=== PATIENT | female | born 1990 | race Caucasian/White ===

== ENCOUNTER 2017-04-04 10:04 | Emergency (ER) | payer OTHER ==
[~2017-04-04] VITALS: Ht 157.5 cm; Wt 137.3 kg
[2017-04-04 10:09] VITALS: BP 137/90
[2017-04-04 11:47] LABS: HEMATOCRIT 39.7 % (36.0-46.0); MCH 28.3 PG (29.0-34.0); MCHC 32.7 G/DL (30.0-36.0); MCV 86.3 FL (83-99); MEAN PLAT.VOLUME 10.9 uM^3 (9.5-12.4); PLATELET COUNT 235 K/uL (156-360); RBC DIS.WIDTH-CV 12.3 % (11.8-14.6); WHITE BLOOD COUNT 7.7 K/uL (4.1-10.2)
[2017-04-04 11:57] LABS: CHLORIDE 106 mEq/L (99-109); POTASSIUM 4.2 mEq/L (3.7-5.4); SODIUM 139 mEq/L (136-147)
[2017-04-04 11:58] LABS: GLUCOSE 88 mg/dL (70-99)
[2017-04-04 12:00] LABS: ANION GAP 8 MEQ/L (2-14)
[2017-04-04 12:02] LABS: GFR ESTIMATE (CALCULATED) > 59 mL/min/
[2017-04-04 12:03] LABS: UREA NITROGEN (BUN) 8 mg/dL (9-23)
[2017-04-04 12:10] LABS: QUANTITATIVE HCG < 4.0 MIU/ML
[2017-04-04 12:12] LABS: ADD MIUA? YES; BILIRUBIN NEGATIVE; BLOOD MODERATE; COLOR YELLOW ((YELLOW)); GLUCOSE (STRIP) NEGATIVE; KETONES NEGATIVE; LEUKOCYTES NEGATIVE; NITRITE NEGATIVE; PROTEIN (STRIP) 30; SPECIFIC GRAVITY 1.024 (1.000-1.030); UROBILINOGEN 0.2 MG/DL (0.2-1.0)
[2017-04-04 12:18] LABS: BACTERIA RARE /HPF; CALCIUM OXALATE CRYSTALS 2+ /HPF; EPITHELIAL CELLS RARE /HPF; HYALINE CASTS 0-5 /LPF; MUCUS 2+ /LPF; WHITE BLOOD CELLS 0-5 /HPF (0-5)
[2017-04-04] MEDS ORDERED: ZOFRAN4 MG PO (12:41)
== END 2017-04-04 12:48 | disposition home or self-care (01) ==
LOC: EME 10:04
PROVIDERS: Physician Assistant
DX: N93.9 Abnormal uterine and vaginal bleeding, unspecified (principal); L74.0 Miliaria rubra
CPT/HCPCS: 80048; 81003; 84702; 85027; 99281; 99284

== ENCOUNTER 2017-04-30 10:12 | Emergency (ER) | payer OTHER ==
[~2017-04-30] VITALS: Ht 157.5 cm; Wt 138.2 kg
[~2017-04-30 10:12] MED LIST: ZOFRAN4 MG PO
[2017-04-30 10:15] VITALS: BP 143/93
[2017-04-30 10:42] LABS: ADD MIUA? YES; BILIRUBIN NEGATIVE; BLOOD NEGATIVE; COLOR YELLOW ((YELLOW)); GLUCOSE (STRIP) NEGATIVE; KETONES NEGATIVE; LEUKOCYTES LARGE; NITRITE NEGATIVE; PROTEIN (STRIP) 30; SPECIFIC GRAVITY 1.027 (1.000-1.030); UROBILINOGEN 0.2 MG/DL (0.2-1.0)
[2017-04-30 10:50] LABS: BACTERIA RARE /HPF; EPITHELIAL CELLS 2+ /HPF; MUCUS TRACE /LPF; RED BLOOD CELLS 0-5 /HPF (0-5); UCUL ADDED? NO; WHITE BLOOD CELLS 0-5 /HPF (0-5)
[2017-04-30 11:35] LABS: EOSINOPHIL (%) 0.6 % (0-5); HEMATOCRIT 38.5 % (36.0-46.0); IMMATURE GRANULOCYTE (%) 0.1 % (0.0-0.7); INSTRUMENT ABS NEUTROPHIL CT 4.1 K/uL; LYMPHOCYTE COUNT 2.5 K/uL (1.0-2.8); MCH 28.2 PG (29.0-34.0); MCV 85.4 FL (83-99); MEAN PLAT.VOLUME 10.5 uM^3 (9.5-12.4); MONOCYTE (%) 5.8 % (3-12); MONOCYTE COUNT 0.4 K/uL (0-0.8); NEUTROPHIL (%) 58.2 % (45-76); NEUTROPHIL COUNT 4.1 K/uL (1.8-6.4); PLATELET COUNT 228 K/uL (156-360); RBC DIS.WIDTH-CV 12.2 % (11.8-14.6); RED BLOOD COUNT 4.51 M/uL (3.80-5.20); WHITE BLOOD COUNT 7.1 K/uL (4.1-10.2)
[2017-04-30 11:44] LABS: CHLORIDE 106 mEq/L (99-109); POTASSIUM 3.7 mEq/L (3.7-5.4); SODIUM 139 mEq/L (136-147)
[2017-04-30 11:46] LABS: GLUCOSE 88 mg/dL (70-99)
[2017-04-30 11:47] LABS: ANION GAP 8 MEQ/L (2-14)
[2017-04-30 11:49] LABS: GFR ESTIMATE (CALCULATED) > 59 mL/min/
[2017-04-30 11:50] LABS: UREA NITROGEN (BUN) 10 mg/dL (9-23)
[2017-04-30 11:59] LABS: QUANTITATIVE HCG < 4.0 MIU/ML
[2017-04-30] MEDS ORDERED: METROGEL-VAGINA70 GM VG (12:08)
== END 2017-04-30 12:27 | disposition home or self-care (01) ==
LOC: EME 10:12
PROVIDERS: Personal Emergency Response Attendant
DX: R42 Dizziness and giddiness (principal); Z11.3 Encounter for screening for infections with a predominantly sexual mode of transmission; F17.200 Nicotine dependence, unspecified, uncomplicated; Z87.440 Personal history of urinary (tract) infections
CPT/HCPCS: 80048; 81003; 84702; 85025; 93005; 99281; 99285; J0696

== ENCOUNTER 2017-05-31 14:51 | Emergency (ER) | payer OTHER ==
[~2017-05-31] VITALS: Ht 157.5 cm; Wt 136.9 kg
[~2017-05-31 14:51] MED LIST changes: +METROGEL-VAGINA70 GM VG
[2017-05-31 16:40] LABS: INTERNAL CONTROL VALID? YES
[2017-05-31] MEDS ORDERED: BACTROBAN OINTM22 GM TP (16:48)
[2017-05-31 16:53] LABS: ADD MIUA? YES; BILIRUBIN NEGATIVE; BLOOD NEGATIVE; GLUCOSE (STRIP) NEGATIVE; KETONES NEGATIVE; LEUKOCYTES MODERATE; NITRITE NEGATIVE; PROTEIN (STRIP) 100; SPECIFIC GRAVITY 1.021 (1.000-1.030)
[2017-05-31 16:57] LABS: COLOR DK YELLOW ((YELLOW))
[2017-05-31 17:11] LABS: AMORPHOUS PHOSPHATE CRYSTALS 4+; BACTERIA 1+ /HPF; CASTS NONE SEEN /LPF; CRYSTALS PRESENT; EPITHELIAL CELLS 2+ /HPF; MUCUS NONE SEEN /LPF; RED BLOOD CELLS 0-5 /HPF (0-5)
[2017-05-31] MEDS ORDERED: VALTREX1000 MG PO (17:30)
[2017-05-31] MEDS ORDERED: KEFLEX500 MG PO (17:30)
[2017-05-31 17:58] VITALS: BP 149/90
== END 2017-05-31 17:59 | disposition home or self-care (01) ==
LOC: EME 14:51
PROVIDERS: Nurse Practitioner Family
DX: S09.93XA Unspecified injury of face, initial encounter (principal); A60.04 Herpesviral vulvovaginitis; Z20.2 Contact with and (suspected) exposure to infections with a predominantly sexual mode of transmission; N39.0 Urinary tract infection, site not specified; W23.0XXA Caught, crushed, jammed, or pinched between moving objects, initial encounter; R21 Rash and other nonspecific skin eruption; Z87.440 Personal history of urinary (tract) infections; F17.200 Nicotine dependence, unspecified, uncomplicated; Z88.2 Allergy status to sulfonamides
CPT/HCPCS: 81003; 84703; 87651 90; 99281; 99284; J0696

== ENCOUNTER 2017-07-01 16:17 | Emergency (ER) | payer OTHER ==
[~2017-07-01] VITALS: Ht 157.5 cm; Wt 97.7 kg
[~2017-07-01 16:17] MED LIST changes: +BACTROBAN OINTM22 GM TP; +KEFLEX500 MG PO; +VALTREX1000 MG PO
[2017-07-01 16:50] LABS: HEMATOCRIT 41.1 % (36.0-46.0); HEMOGLOBIN 13.8 G/DL (11.9-15.5); MCH 28.6 PG (29.0-34.0); MCHC 33.6 G/DL (30.0-36.0); MCV 85.1 FL (83-99); PLATELET COUNT 230 K/uL (156-360); RBC DIS.WIDTH-CV 12.6 % (11.8-14.6); RBC DIS.WIDTH-SD 38.8 % (39-53); RED BLOOD COUNT 4.83 M/uL (3.80-5.20); WHITE BLOOD COUNT 8.5 K/uL (4.1-10.2)
[2017-07-01 17:03] LABS: CHLORIDE 104 mEq/L (99-109); POTASSIUM 3.8 mEq/L (3.7-5.4); SODIUM 139 mEq/L (136-147)
[2017-07-01 17:06] LABS: GLUCOSE 85 mg/dL (70-99); TOTAL PROTEIN 7.2 g/dL (6.4-8.3)
[2017-07-01 17:08] LABS: TOTAL BILIRUBIN 0.6 mg/dL (0.0-1.0)
[2017-07-01 17:09] LABS: ALKALINE PHOSPHATASE 58 IU/L (3-129); CREATININE 0.7 mg/dL (0.6-1.3); GFR ESTIMATE (CALCULATED) > 59 mL/min/
[2017-07-01 17:10] LABS: UREA NITROGEN (BUN) 11 mg/dL (9-23)
[2017-07-01 17:11] LABS: AST (GOT) 13 IU/L (2-34)
[2017-07-01 17:12] LABS: ALT (GPT) 22 IU/L (3-49)
[2017-07-01 17:18] LABS: QUANTITATIVE HCG < 4.0 MIU/ML
[2017-07-01 19:26] LABS: APPEARANCE CLOUDY ((CLEAR)); BILIRUBIN NEGATIVE; BLOOD NEGATIVE; COLOR YELLOW ((YELLOW)); GLUCOSE (STRIP) NEGATIVE; KETONES NEGATIVE; LEUKOCYTES LARGE; NITRITE NEGATIVE; PROTEIN (STRIP) 30; SPECIFIC GRAVITY 1.025 (1.000-1.030); UROBILINOGEN 0.2 MG/DL (0.2-1.0)
[2017-07-01 19:29] LABS: SOURCE SWAB
[2017-07-01 19:41] LABS: RED BLOOD CELLS 0-5 /HPF (0-5); WHITE BLOOD CELLS 30-40 /HPF (0-5)
[2017-07-01 19:42] LABS: BACTERIA 2+ /HPF; EPITHELIAL CELLS 2+ /HPF; MUCUS 1+ /LPF; UCUL ADDED? YES
[2017-07-01] MEDS ORDERED: KEFLEX500 MG PO (19:50)
[2017-07-01] MEDS ORDERED: VALACYCLOVIR500 MG PO (20:04)
[2017-07-01 20:10] VITALS: BP 134/78
== END 2017-07-01 20:11 | disposition home or self-care (01) ==
LOC: EME 16:17
PROVIDERS: Physician Assistant
DX: N39.0 Urinary tract infection, site not specified (principal); Z87.440 Personal history of urinary (tract) infections; F17.200 Nicotine dependence, unspecified, uncomplicated; Z88.2 Allergy status to sulfonamides
CPT/HCPCS: 80053; 81003; 84702; 85027; 87086; 87210; 87491; 87591; 99281; 99284

== ENCOUNTER 2017-07-28 18:26 | Emergency (ER) | payer OTHER ==
[~2017-07-28] VITALS: Ht 157.5 cm; Wt 132.5 kg
[~2017-07-28 18:26] MED LIST changes: +VALACYCLOVIR500 MG PO
[2017-07-28 19:42] LABS: APPEARANCE SL.HAZY ((CLEAR)); BILIRUBIN NEGATIVE; BLOOD MODERATE; COLOR YELLOW ((YELLOW)); GLUCOSE (STRIP) NEGATIVE; KETONES NEGATIVE; LEUKOCYTES SMALL; NITRITE NEGATIVE; PROTEIN (STRIP) NEGATIVE; SPECIFIC GRAVITY 1.029 (1.000-1.030); UROBILINOGEN 0.2 MG/DL (0.2-1.0)
[2017-07-28 19:50] LABS: BACTERIA RARE /HPF; CALCIUM OXALATE CRYSTALS 4+ /HPF; EPITHELIAL CELLS 1+ /HPF; HYALINE CASTS 0-5 /LPF; MUCUS TRACE /LPF; UCUL ADDED? NO; WHITE BLOOD CELLS 0-5 /HPF (0-5)
[2017-07-28 19:58] LABS: HEMATOCRIT 41.1 % (36.0-46.0); HEMOGLOBIN 13.8 G/DL (11.9-15.5); MCH 28.7 PG (29.0-34.0); MCHC 33.6 G/DL (30.0-36.0); MCV 85.4 FL (83-99); PLATELET COUNT 234 K/uL (156-360); RBC DIS.WIDTH-CV 12.5 % (11.8-14.6); RBC DIS.WIDTH-SD 38.5 % (39-53); RED BLOOD COUNT 4.81 M/uL (3.80-5.20); WHITE BLOOD COUNT 9.3 K/uL (4.1-10.2)
[2017-07-28 20:07] LABS: ALBUMIN 4.3 g/dL (3.2-4.8); CHLORIDE 108 mEq/L (99-109); POTASSIUM 3.4 mEq/L (3.7-5.4); SODIUM 142 mEq/L (136-147)
[2017-07-28 20:09] LABS: GLUCOSE 88 mg/dL (70-99)
[2017-07-28 20:10] LABS: TOTAL PROTEIN 7.2 g/dL (6.4-8.3)
[2017-07-28 20:11] LABS: TOTAL BILIRUBIN 0.4 mg/dL (0.0-1.0)
[2017-07-28 20:13] LABS: ALKALINE PHOSPHATASE 63 IU/L (3-129); CREATININE 0.7 mg/dL (0.6-1.3); GFR ESTIMATE (CALCULATED) > 59 mL/min/
[2017-07-28 20:14] LABS: UREA NITROGEN (BUN) 11 mg/dL (9-23)
[2017-07-28 20:15] LABS: AST (GOT) 14 IU/L (2-34); DIRECT BILIRUBIN 0.1 mg/dL (0.0-0.3)
[2017-07-28 20:16] LABS: ALT (GPT) 21 IU/L (3-49); LIPASE 8 U/L (1.0-51.0)
[2017-07-28 20:22] LABS: QUANTITATIVE HCG < 4.0 MIU/ML
[2017-07-28] MEDS ORDERED: KEFLEX500 MG PO (21:11)
[2017-07-28] MEDS ORDERED: ZOFRAN4 MG PO (21:11)
[2017-07-28] MEDS ORDERED: NAPROSYN500 MG PO (21:11)
[2017-07-28 21:38] VITALS: BP 135/86
== END 2017-07-28 21:39 | disposition home or self-care (01) ==
LOC: EME 18:26
PROVIDERS: Emergency Medicine
DX: N39.0 Urinary tract infection, site not specified (principal); R10.11 Right upper quadrant pain; Z20.2 Contact with and (suspected) exposure to infections with a predominantly sexual mode of transmission; M54.5 Low back pain; Z87.440 Personal history of urinary (tract) infections; F17.200 Nicotine dependence, unspecified, uncomplicated; Z88.2 Allergy status to sulfonamides
CPT/HCPCS: 72131; 74176; 80048; 80076; 81003; 83690; 84702; 85027; 87086; 99281; 99284; J0696

== ENCOUNTER 2017-08-15 13:02 | Emergency (ER) | payer OTHER ==
[~2017-08-15] VITALS: Ht 157.5 cm; Wt 133.0 kg
[~2017-08-15 13:02] MED LIST changes: +NAPROSYN500 MG PO
[2017-08-15 13:35] LABS: HEMATOCRIT 40.2 % (36.0-46.0); HEMOGLOBIN 13.6 G/DL (11.9-15.5); MCH 29.1 PG (29.0-34.0); MCHC 33.8 G/DL (30.0-36.0); MCV 85.9 FL (83-99); PLATELET COUNT 213 K/uL (156-360); RBC DIS.WIDTH-CV 12.8 % (11.8-14.6); RBC DIS.WIDTH-SD 39.8 % (39-53); RED BLOOD COUNT 4.68 M/uL (3.80-5.20); WHITE BLOOD COUNT 7.3 K/uL (4.1-10.2)
[2017-08-15 13:36] LABS: APPEARANCE SL.HAZY ((CLEAR)); BILIRUBIN NEGATIVE; BLOOD NEGATIVE; COLOR YELLOW ((YELLOW)); GLUCOSE (STRIP) NEGATIVE; KETONES NEGATIVE; LEUKOCYTES NEGATIVE; NITRITE NEGATIVE; PROTEIN (STRIP) NEGATIVE; SPECIFIC GRAVITY 1.026 (1.000-1.030)
[2017-08-15 13:44] LABS: CHLORIDE 103 mEq/L (99-109); POTASSIUM 3.4 mEq/L (3.7-5.4); SODIUM 137 mEq/L (136-147)
[2017-08-15 13:45] LABS: BACTERIA NONE SEEN /HPF; EPITHELIAL CELLS 2+ /HPF; MUCUS 1+ /LPF; RED BLOOD CELLS 0-5 /HPF (0-5); UCUL ADDED? NO; WHITE BLOOD CELLS 0-5 /HPF (0-5)
[2017-08-15 13:45] LABS: GLUCOSE 81 mg/dL (70-99)
[2017-08-15 13:49] LABS: CREATININE 0.7 mg/dL (0.6-1.3); GFR ESTIMATE (CALCULATED) > 59 mL/min/
[2017-08-15 13:50] LABS: UREA NITROGEN (BUN) 7 mg/dL (9-23)
[2017-08-15 14:00] LABS: QUANTITATIVE HCG < 4.0 MIU/ML
[2017-08-15] MEDS ORDERED: BENTYL20 MG PO (15:23)
[2017-08-15] MEDS ORDERED: ZOFRAN ODT4 MG PO (15:23)
[2017-08-15 15:38] VITALS: BP 166/102
== END 2017-08-15 15:40 | disposition home or self-care (01) ==
LOC: EME 13:02
PROVIDERS: Nurse Practitioner Family
DX: R10.84 Generalized abdominal pain (principal); R11.2 Nausea with vomiting, unspecified; R19.7 Diarrhea, unspecified; E87.6 Hypokalemia; F17.200 Nicotine dependence, unspecified, uncomplicated; Z88.2 Allergy status to sulfonamides
CPT/HCPCS: 74176; 80048; 81003; 84702; 85027; 99281; 99285

== ENCOUNTER 2017-12-13 02:31 | Emergency (ER) | payer OTHER ==
[~2017-12-13] VITALS: Ht 157.5 cm; Wt 145.4 kg
[~2017-12-13 02:31] MED LIST changes: +BENTYL20 MG PO; +ZOFRAN ODT4 MG PO
[2017-12-13 02:50] LABS: HEMATOCRIT 38.5 % (36.0-46.0); HEMOGLOBIN 13.1 G/DL (11.9-15.5); MCH 29.1 PG (29.0-34.0); MCV 85.6 FL (83-99); PLATELET COUNT 242 K/uL (156-360); RBC DIS.WIDTH-CV 12.2 % (11.8-14.6); RBC DIS.WIDTH-SD 37.2 % (39-53); WHITE BLOOD COUNT 9.4 K/uL (4.1-10.2)
[2017-12-13 03:00] LABS: APPEARANCE SL.HAZY ((CLEAR)); BILIRUBIN NEGATIVE; BLOOD NEGATIVE; COLOR YELLOW ((YELLOW)); GLUCOSE (STRIP) NEGATIVE; KETONES NEGATIVE; LEUKOCYTES TRACE; NITRITE NEGATIVE; PROTEIN (STRIP) 30; SPECIFIC GRAVITY 1.034 (1.000-1.030)
[2017-12-13 03:06] LABS: BACTERIA NONE SEEN /HPF; EPITHELIAL CELLS 1+ /HPF; MUCUS 1+ /LPF; RED BLOOD CELLS 0-5 /HPF (0-5); UCUL ADDED? NO; WHITE BLOOD CELLS 0-5 /HPF (0-5)
[2017-12-13 06:14] VITALS: BP 148/92
== END 2017-12-13 06:15 | disposition home or self-care (01) ==
LOC: EME 02:31
DX: O20.9 Hemorrhage in early pregnancy, unspecified (principal); O99.330 Smoking (tobacco) complicating pregnancy, unspecified trimester; F17.210 Nicotine dependence, cigarettes, uncomplicated; Z88.2 Allergy status to sulfonamides; Z3A.00 Weeks of gestation of pregnancy not specified
CPT/HCPCS: 76801; 81003; 84702; 85027; 86900; 86901; 99281; 99283

== ENCOUNTER 2018-01-02 00:31 | Emergency (ER) | payer OTHER ==
[~2018-01-02] VITALS: Ht 157.5 cm; Wt 149.0 kg
[2018-01-02 01:39] LABS: HEMOGLOBIN 12.8 G/DL (11.9-15.5); MCH 29.2 PG (29.0-34.0); MCHC 34.6 G/DL (30.0-36.0); MCV 84.3 FL (83-99); PLATELET COUNT 241 K/uL (156-360); RBC DIS.WIDTH-CV 12.1 % (11.8-14.6); RBC DIS.WIDTH-SD 36.7 % (39-53); RED BLOOD COUNT 4.39 M/uL (3.80-5.20)
[2018-01-02 01:50] LABS: ALBUMIN 4.1 g/dL (3.2-4.8)
[2018-01-02 01:51] LABS: CHLORIDE 105 mEq/L (99-109); POTASSIUM 3.8 mEq/L (3.7-5.4); SODIUM 139 mEq/L (136-147)
[2018-01-02 01:53] LABS: GLUCOSE 106 mg/dL (70-99); TOTAL PROTEIN 6.5 g/dL (6.4-8.3)
[2018-01-02 01:55] LABS: TOTAL BILIRUBIN 0.3 mg/dL (0.0-1.0)
[2018-01-02 01:56] LABS: ALKALINE PHOSPHATASE 59 IU/L (3-129)
[2018-01-02 01:57] LABS: CREATININE 0.7 mg/dL (0.6-1.3); GFR ESTIMATE (CALCULATED) > 59 mL/min/
[2018-01-02 01:58] LABS: AST (GOT) 13 IU/L (2-34); UREA NITROGEN (BUN) 7 mg/dL (9-23)
[2018-01-02 02:00] LABS: ALT (GPT) 15 IU/L (3-49)
[2018-01-02 02:05] LABS: QUANTITATIVE HCG 270.5 MIU/ML
[2018-01-02 02:51] LABS: APPEARANCE CLOUDY ((CLEAR)); BILIRUBIN NEGATIVE; BLOOD NEGATIVE; COLOR YELLOW ((YELLOW)); GLUCOSE (STRIP) NEGATIVE; KETONES NEGATIVE; LEUKOCYTES SMALL; NITRITE NEGATIVE; PROTEIN (STRIP) 100; SPECIFIC GRAVITY 1.032 (1.000-1.030)
[2018-01-02 02:57] LABS: BACTERIA RARE /HPF; EPITHELIAL CELLS 2+ /HPF; MUCUS 4+ /LPF; UCUL ADDED? YES
[2018-01-02] MEDS ORDERED: MACROBID100 MG PO (04:33)
[2018-01-02 04:58] VITALS: BP 144/96
== END 2018-01-02 04:59 | disposition home or self-care (01) ==
LOC: EME 00:31
DX: O23.41 Unspecified infection of urinary tract in pregnancy, first trimester (principal); O34.81 Maternal care for other abnormalities of pelvic organs, first trimester; N83.201 Unspecified ovarian cyst, right side; N83.202 Unspecified ovarian cyst, left side; O26.891 Other specified pregnancy related conditions, first trimester; R10.11 Right upper quadrant pain; O99.331 Smoking (tobacco) complicating pregnancy, first trimester; F17.200 Nicotine dependence, unspecified, uncomplicated; Z88.2 Allergy status to sulfonamides; Z3A.01 Less than 8 weeks gestation of pregnancy
CPT/HCPCS: 76705; 76801; 80053; 81003; 84702; 85027; 87086; 99281; 99284

== ENCOUNTER 2018-01-07 12:52 | Emergency (ER) | payer OTHER ==
[~2018-01-07] VITALS: Ht 157.5 cm; Wt 148.6 kg
[~2018-01-07 12:52] MED LIST changes: +MACROBID100 MG PO
[2018-01-07 13:30] LABS: HEMATOCRIT 37.8 % (36.0-46.0); HEMOGLOBIN 12.9 G/DL (11.9-15.5); MCH 29.1 PG (29.0-34.0); MCHC 34.1 G/DL (30.0-36.0); MCV 85.3 FL (83-99); PLATELET COUNT 224 K/uL (156-360); RBC DIS.WIDTH-CV 12.1 % (11.8-14.6); RBC DIS.WIDTH-SD 37.2 % (39-53); RED BLOOD COUNT 4.43 M/uL (3.80-5.20); WHITE BLOOD COUNT 8.2 K/uL (4.1-10.2)
[2018-01-07 13:58] LABS: QUANTITATIVE HCG 292.2 MIU/ML
[2018-01-07 15:59] LABS: APPEARANCE SL.HAZY ((CLEAR)); BILIRUBIN NEGATIVE; BLOOD NEGATIVE; COLOR YELLOW ((YELLOW)); GLUCOSE (STRIP) NEGATIVE; KETONES NEGATIVE; LEUKOCYTES MODERATE; NITRITE NEGATIVE; PROTEIN (STRIP) 100; SPECIFIC GRAVITY 1.025 (1.000-1.030)
[2018-01-07 16:02] LABS: BACTERIA NONE SEEN /HPF; EPITHELIAL CELLS 1+ /HPF; MUCUS TRACE /LPF; RED BLOOD CELLS 0-5 /HPF (0-5); UCUL ADDED? NO; WHITE BLOOD CELLS 0-5 /HPF (0-5)
[2018-01-07 16:29] LABS: CHLORIDE 104 mEq/L (99-109); SODIUM 137 mEq/L (136-147)
[2018-01-07 16:31] LABS: GLUCOSE 109 mg/dL (70-99)
[2018-01-07 16:35] LABS: CREATININE 0.7 mg/dL (0.6-1.3); GFR ESTIMATE (CALCULATED) > 59 mL/min/
[2018-01-07 16:36] LABS: UREA NITROGEN (BUN) 8 mg/dL (9-23)
[2018-01-07 17:04] VITALS: BP 137/82
== END 2018-01-07 17:10 | disposition home or self-care (01) ==
LOC: EME 12:52
DX: O03.9 Complete or unspecified spontaneous abortion without complication (principal); F17.200 Nicotine dependence, unspecified, uncomplicated; Z88.2 Allergy status to sulfonamides
CPT/HCPCS: 80048; 81003; 84702; 85027; 86900; 86901; 99281; 99284

== ENCOUNTER 2018-01-09 16:47 | Emergency (ER) | payer OTHER ==
[~2018-01-09] VITALS: Ht 157.5 cm; Wt 149.2 kg
[2018-01-09 17:52] LABS: BASOPHIL (%) 0.3 % (0-1); EOSINOPHIL (%) 0.5 % (0-5); HEMATOCRIT 37.8 % (36.0-46.0); HEMOGLOBIN 12.9 G/DL (11.9-15.5); IMMATURE GRANULOCYTE (%) 0.3 % (0.0-0.7); LYMPHOCYTE (%) 29.5 % (15-42); LYMPHOCYTE COUNT 2.3 K/uL (1.0-2.8); MCH 29.1 PG (29.0-34.0); MCHC 34.1 G/DL (30.0-36.0); MCV 85.1 FL (83-99); MONOCYTE (%) 5.8 % (3-12); MONOCYTE COUNT 0.5 K/uL (0-0.8); NEUTROPHIL (%) 63.6 % (45-76); NEUTROPHIL COUNT 4.9 K/uL (1.8-6.4); PLATELET COUNT 232 K/uL (156-360); RBC DIS.WIDTH-CV 12.1 % (11.8-14.6); RBC DIS.WIDTH-SD 37.1 % (39-53); RED BLOOD COUNT 4.44 M/uL (3.80-5.20); WHITE BLOOD COUNT 7.8 K/uL (4.1-10.2)
[2018-01-09 18:02] LABS: ALBUMIN 3.8 g/dL (3.2-4.8); CHLORIDE 104 mEq/L (99-109); POTASSIUM 3.7 mEq/L (3.7-5.4); SODIUM 136 mEq/L (136-147)
[2018-01-09 18:04] LABS: GLUCOSE 105 mg/dL (70-99); TOTAL PROTEIN 6.3 g/dL (6.4-8.3)
[2018-01-09 18:06] LABS: TOTAL BILIRUBIN 0.7 mg/dL (0.0-1.0)
[2018-01-09 18:08] LABS: ALKALINE PHOSPHATASE 58 IU/L (3-129); CREATININE 0.7 mg/dL (0.6-1.3); GFR ESTIMATE (CALCULATED) > 59 mL/min/
[2018-01-09 18:09] LABS: AST (GOT) 14 IU/L (2-34); UREA NITROGEN (BUN) 8 mg/dL (9-23)
[2018-01-09 18:10] LABS: DIRECT BILIRUBIN 0.3 mg/dL (0.0-0.3)
[2018-01-09 18:11] LABS: ALT (GPT) 17 IU/L (3-49)
[2018-01-09 18:17] LABS: QUANTITATIVE HCG 326.8 MIU/ML
[2018-01-09 19:48] LABS: APPEARANCE SL.HAZY ((CLEAR)); BILIRUBIN NEGATIVE; BLOOD NEGATIVE; COLOR YELLOW ((YELLOW)); GLUCOSE (STRIP) NEGATIVE; KETONES NEGATIVE; LEUKOCYTES SMALL; NITRITE NEGATIVE; PROTEIN (STRIP) 30; SPECIFIC GRAVITY 1.025 (1.000-1.030)
[2018-01-09 20:08] LABS: BACTERIA RARE /HPF; EPITHELIAL CELLS 2+ /HPF; MUCUS 1+ /LPF; RED BLOOD CELLS 0-5 /HPF (0-5); WHITE BLOOD CELLS 0-5 /HPF (0-5)
[2018-01-09 22:42] VITALS: BP 140/78
== END 2018-01-09 22:52 | disposition home or self-care (01) ==
LOC: EME 16:47
PROVIDERS: Physician Assistant
DX: O00.90 Unspecified ectopic pregnancy without intrauterine pregnancy (principal); M79.671 Pain in right foot; R03.0 Elevated blood-pressure reading, without diagnosis of hypertension; E66.01 Morbid (severe) obesity due to excess calories; Z68.44 Body mass index [BMI] 60.0-69.9, adult; N83.202 Unspecified ovarian cyst, left side; N83.201 Unspecified ovarian cyst, right side; F17.200 Nicotine dependence, unspecified, uncomplicated; Z88.2 Allergy status to sulfonamides
CPT/HCPCS: 73630; 76801; 80048; 80076; 81003; 84702; 85025; 85379; 87086; 99281; 99285; J7030; J9260